=== PATIENT | female | born 1960 | race Caucasian/White ===

== ENCOUNTER 2017-01-01 12:42 | Emergency (ER) | payer OTHER ==
[2017-01-01] MEDS ORDERED: Acetaminophen/HYDROcodone 325-5 MG Tab PO ONE (14:01)
--- NOTE | 2017-01-01 14:01 | EDM.PDOC ---
ED HPI GENERAL MEDICAL PROBLEM - General Chief Complaint: Lower Extremity Injury/Pain Stated Complaint: LEFT FOOT INJURY, PAIN, SWELLING,FELL OUT OF CHAIR Time Seen by Provider: 01/01/17 13:26 Source of Information: Reports: Patient History Limitations: Reports: No Limitations - History of Present Illness INITIAL COMMENTS - FREE TEXT/NARRATIVE: 56 yo female presents with left foot pain. She had 2 falls yesterday. In her first fall she was trying to break a tree branch and it "threw me back because it was green" in her second fall she fell backwards while laughing out of a chair. She can not explain exact ADOLFO of foot injury but pain was present after first fall that caused her to limp. generally healthy. last tool Ibuprofen 4 hours ago left foot Pain Score (Numeric/FACES): 6 - Related Data Allergies Allergy/AdvReac Type Severity Reaction Status Date / Time erythromycin base Allergy Anaphylactic Verified 01/01/17 13:24 Shock Penicillins Allergy Hives Verified 01/01/17 13:24 Sulfa (Sulfonamide Allergy Hives Verified 01/01/17 13:24 Antibiotics) Home Meds: Home Meds Albuterol Sulfate 5 mg IH DAILY 01/01/17 [History] Past Medical History Respiratory History: Reports: Asthma - Past Surgical History Musculoskeletal Surgical History: Reports: Other (See Below) Other Musculoskeletal Surgeries/Procedures:: back surgery Social & Family History - Tobacco Use Smoking Status *Q: Never Smoker - Alcohol Use Days Per Week of Alcohol Use: 7 Number of Drinks Per Day: 1 Total Drinks Per Week: 7 - Recreational Drug Use Recreational Drug Use: No Review of Systems - Review of Systems Review Of Systems: See Below Constitutional: Denies: Fever Respiratory: Denies: Shortness of Breath, Wheezing Cardiovascular: Denies: Chest Pain Skin: Reports: Bruising ED EXAM, GENERAL - Physical Exam Exam: See Below Exam Limited By: No Limitations General Appearance: Alert, WD/WN, No Apparent Distress Respiratory/Chest: No Respiratory Distress, Lungs Clear. No: Crackles, Rhonchi , Wheezing Cardiovascular: Regular Rate, Rhythm Extremities: Joint Swelling, Other (right hip ecchymosis full ROM of right hip, left rotoformer backtender over great toe, mild edema no erythema or ecchymosis) Neurological: Alert, Oriented Course - Vital Signs Last Recorded V/S: Last Vital Signs Temp 36.7 C 01/01/17 14:31 Pulse 68 01/01/17 14:31 Resp 14 01/01/17 14:31 BP 131/87 01/01/17 14:31 Pulse Ox 97 01/01/17 14:31 - Orders/Labs/Meds Orders: Active Orders 24 hr Category Date Time Status Foot Comp Min 3V Lt [CR] Stat Exams 01/01/17 14:01 Taken Meds: Medications Discontinued Medications Generic Name Dose Route Start Last Admin Trade Name Eddie PRN Reason Stop Dose Admin Hydrocodone Bitart/Acetaminophen 1 tab 01/01/17 14:01 01/01/17 14:21 [place] 325-5 Mg PO 01/01/17 14:02 1 tab ONETIME ONE Administration - Re-Assessments/Exams Free Text/Narrative Re-Assessment/Exam: 01/01/17 18:17 oral pain medication improved pain. X-ray reviewed without acute abnormality Departure - Departure Time of Disposition: 14:29 Disposition: Home, Self-Care 01 Condition: Good Clinical Impression: Elevated blood pressure reading Foot injury Qualifiers: Encounter type: initial encounter Laterality: left Qualified Code(s): S99.922A - Unspecified injury of left foot, initial encounter - Discharge Information Instructions: Managing Your High Blood Pressure Referrals: PCP,None [Primary Care Provider] - Forms: ED Department Discharge Additional Instructions: ice at least 3 times daily for the next 3 days Ibuprofen 400-600 mg every 6 hours as needed for pain, over the next 3 days do take Ibuprofen at least twice daily may use tylenol 1000 mg every 6 hours for break through pain if pain has not improved in 5 days follow-up for a repeat x-ray your blood pressure was elevated at your visit today. This is likely because of the injury but please monitor your blood pressure and establish care with a primary care provider if it remains greater then 140/90 - My Orders Last 24 Hours: My Active Orders 01/01/17 14:01 Foot Comp Min 3V Lt [CR] Stat - Assessment/Plan Last 24 Hours: My Active Orders 01/01/17 14:01 Foot Comp Min 3V Lt [CR] Stat
[2017-01-01 14:34] VITALS: BP 131/87
--- NOTE | 2017-01-02 08:56 | CR ---
Foot Comp Min 3V Lt HISTORY: trauma FINDINGS: No acute fracture or dislocation is identified. Bony architecture and joint spaces are preserved. Soft tissues are unremarkable. IMPRESSION: No acute left foot abnormality identified.
== END 2017-01-01 14:44 | disposition home or self-care (01) ==
LOC: JP.ED 12:42
DX: S70.01XA Contusion of right hip, initial encounter (principal); S99.922A Unspecified injury of left foot, initial encounter; R03.0 Elevated blood-pressure reading, without diagnosis of hypertension; J45.909 Unspecified asthma, uncomplicated; Z88.8 Allergy status to other drugs, medicaments and biological substances; Z88.0 Allergy status to penicillin; Z88.2 Allergy status to sulfonamides; Z79.899 Other long term (current) drug therapy; W19.XXXA Unspecified fall, initial encounter
CPT/HCPCS: 73630; 99284; A9270